=== PATIENT | female | born 1990 | race Hispanic/Latino ===

== ENCOUNTER 2018-03-10 17:09 | Emergency (ER) | payer OTHER ==
[2018-03-10 17:55] LABS: APPEARANCE,URINE Clear (CLEAR); BILIRUBIN,URINE Negative (NEGATIVE); COLOR,URINE Yellow (YELLOW); GLUCOSE, URINE (UA) Negative (NEGATIVE); KETONES,URINE Negative (NEGATIVE); LEUKOCYTE ESTERASE ,URINE Trace (NEGATIVE); NITRATE,URINE Negative (NEGATIVE); OCCULT BLOOD,URINE Moderate (NEGATIVE); PH,URINE 6.5 (5.0-8.0); PROTEIN,URINE Trace (NEGATIVE)
[2018-03-10 18:04] LABS: BACTERIA,URINE None Seen /HPF (None Seen); MUCUS,URINE Moderate LPF (None Seen); RBC,URINE 0-1 /HPF (0-1); SQUAMOUS EPITHELIAL CELL,UR 0-2 /HPF (0-2)
== END 2018-03-10 18:49 | disposition home or self-care (01) ==
LOC: EDH 17:09
DX: N39.0 Urinary tract infection, site not specified (principal)
CPT/HCPCS: 81001; 81025; 87486; 87797

== ENCOUNTER 2021-06-06 09:38 | Observation (INO) | payer MEDICAID ==
[~2021-06-06] VITALS: Ht 152.4 cm; Wt 45.8 kg
[2021-06-06 09:39] VITALS: BP 109/59
[2021-06-06 10:38] LABS: APPEARANCE,URINE Clear (CLEAR); BILIRUBIN,URINE Negative (NEGATIVE); COLOR,URINE Yellow (YELLOW); GLUCOSE, URINE (UA) Negative (NEGATIVE); KETONES,URINE Negative (NEGATIVE); LEUKOCYTE ESTERASE ,URINE Large (NEGATIVE); NITRATE,URINE Negative (NEGATIVE); OCCULT BLOOD,URINE Moderate (NEGATIVE); PH,URINE 7.5 (5.0-8.0); PROTEIN,URINE Negative (NEGATIVE)
[2021-06-06 10:59] LABS: BACTERIA,URINE Moderate /HPF (None Seen); RBC,URINE 0-1 /HPF (0-1); SQUAMOUS EPITHELIAL CELL,UR Moderate /HPF (0-2)
[2021-06-06 11:09] LABS: HEMATOCRIT 32.1 % (36-48); MEAN CORPUSCULAR HEMOGLOBIN 28.8 pg (27.0-33.0); MEAN CORPUSCULAR HGB CONC 31.5 g/dL (32.0-36.0); MEAN CORPUSCULAR VOLUME 91.5 fL (79-99); RED BLOOD CELL COUNT(AUTO) 3.51 MIL/uL (4.00-5.50); RED CELL DISTRIBUTION WIDTH 14.9 % (11.0-15.5); WHITE BLOOD COUNT (AUTO) 15.7 K/uL (4.8-10.8)
== END 2021-06-06 14:30 | disposition home or self-care (01) ==
LOC: EDH 09:38 → LDH 09:39
PROVIDERS: ADMIT Obstetrics & Gynecology; ATTEND Obstetrics & Gynecology
DX: O36.8120 Decreased fetal movements, second trimester, not applicable or unspecified (principal); Z3A.21 21 weeks gestation of pregnancy; Z79.899 Other long term (current) drug therapy
CPT/HCPCS: 36415; 59025; 76805; 81001; 85027; 87088; G0378 ×4

== ENCOUNTER → 2021-08-26 | Outpatient (CLI) | payer MEDICAID | END | disposition home or self-care (01) | LOC: RAH 09:08 | PROVIDERS: ATTEND Obstetrics & Gynecology | DX: N60.02 Solitary cyst of left breast (principal); N63.23 Unspecified lump in the left breast, lower outer quadrant | CPT/HCPCS: 76641 ==

== ENCOUNTER 2022-08-29 22:55 | Emergency (ER) | payer MEDICAID ==
[~2022-08-29] VITALS: Ht 152.4 cm; Wt 40.8 kg
[~2022-08-29 22:55] MED LIST: ACET-66 PO
[2022-08-29] MEDS ORDERED: 0.9%NACL 1000ML 1,000 ML IV ONE ×2 (23:06→23:30)
[2022-08-29] MEDS ORDERED: DIPHENOXYLATE HCL/ATROPINE 2.5/0.025 MG TAB PO ONE ×2 (23:06→23:30)
[2022-08-29] MEDS ORDERED: ONDANSETRON 4MG INJ ONE (23:06)
[2022-08-29 23:16] VITALS: BP 126/67
[2022-08-29 23:21] LABS: BASOPHILS % (AUTO) 0.8 % (0.0-5.0); HEMATOCRIT 32.4 % (36-48); LYMPHOCYTES % (AUTO) 23.3 % (21.0-51.0); MEAN CORPUSCULAR HEMOGLOBIN 23.7 pg (27.0-33.0); MEAN CORPUSCULAR HGB CONC 30.6 g/dL (32.0-36.0); MEAN CORPUSCULAR VOLUME 77.7 fL (79-99); MONOCYTES % (AUTO) 8.9 % (3.0-13.0); NEUTROPHILS % (AUTO) 65.7 % (40.0-77.0); PLATELET COUNT (AUTO) 339 K/uL (130-400); RED BLOOD CELL COUNT(AUTO) 4.17 MIL/uL (4.00-5.50); RED CELL DISTRIBUTION WIDTH 14.3 % (11.0-15.5); WHITE BLOOD COUNT (AUTO) 6.1 K/uL (4.8-10.8)
[2022-08-29 23:26] LABS: APPEARANCE,URINE CLEAR (CLEAR); BILIRUBIN,URINE NEGATIVE (NEGATIVE); COLOR,URINE COLORLESS (YELLOW); GLUCOSE, URINE (UA) NEGATIVE (NEGATIVE); KETONES,URINE NEGATIVE (NEGATIVE); LEUKOCYTE ESTERASE ,URINE NEGATIVE Leu/uL (NEGATIVE); NITRATE,URINE NEGATIVE (NEGATIVE); OCCULT BLOOD,URINE NEGATIVE (NEGATIVE); PROTEIN,URINE NEGATIVE (NEGATIVE); UROBILINOGEN,URINE 0.2 mg/dL (0.2-1.0)
[2022-08-29 23:27] LABS: HCG,QUALITATIVE URINE NEGATIVE (NEGATIVE)
[2022-08-29 23:29] LABS: CREATININE 0.6 mg/dL (0.5-1.5); POTASSIUM 4.1 mmol/L (3.5-5.1)
[2022-08-29] MEDS ORDERED: ONDANSETRON 4MG INJ IVP ONE (23:30)
[2022-08-29 23:34] LABS: ALBUMIN 4.4 g/dL (3.5-5.0); TOTAL PROTEIN, SERUM 7.8 g/dL (6.0-8.3)
== END 2022-08-30 00:11 | disposition home or self-care (01) ==
LOC: EDH 22:55
DX: F41.9 Anxiety disorder, unspecified (principal)
CPT/HCPCS: 99283; 80053; 83690; 85025; 81003; 81025; 36415; J7030; J2405

== ENCOUNTER 2024-02-02 14:44 | Observation (INO) | payer MEDICAID ==
[~2024-02-02] VITALS: Ht 154.9 cm; Wt 53.5 kg
[2024-02-02 14:51] VITALS: BP 106/47; PULSE 70; RESP 16; O2SAT 98
[2024-02-02 15:32] LABS: APPEARANCE,URINE CLEAR (CLEAR); BILIRUBIN,URINE NEGATIVE (NEGATIVE); COLOR,URINE LIGHT-YELLOW (YELLOW); GLUCOSE, URINE (UA) NEGATIVE (NEGATIVE); KETONES,URINE 100 mg/dL (NEGATIVE); LEUKOCYTE ESTERASE ,URINE 75 Leu/uL (NEGATIVE); NITRATE,URINE NEGATIVE (NEGATIVE); OCCULT BLOOD,URINE NEGATIVE (NEGATIVE); PROTEIN,URINE NEGATIVE (NEGATIVE); UROBILINOGEN,URINE 0.2 mg/dL (0.2-1.0)
[2024-02-02 15:41] LABS: ADD UA MICROSCOPIC YES
[2024-02-02 15:43] LABS: BACTERIA,URINE RARE /HPF (None Seen); MUCUS,URINE RARE LPF (None Seen); SQUAMOUS EPITHELIAL CELL,UR FEW /HPF (0-2)
[2024-02-02] MEDS: LACTATED RINGERS 1000ML 1,000 ML IV SCH (17:09)
[2024-02-02] MEDS: TERBUTALINE SULFATE VIAL 1MG/ML SQ SCH (17:20)
[2024-02-02 20:32] LABS: HEMATOCRIT 32.9 % (36-48); MEAN CORPUSCULAR HEMOGLOBIN 26.5 pg (27.0-33.0); MEAN CORPUSCULAR HGB CONC 30.7 g/dL (32.0-36.0); MEAN CORPUSCULAR VOLUME 86.4 fL (79-99); PLATELET COUNT (AUTO) 322 K/uL (130-400); RED BLOOD CELL COUNT(AUTO) 3.81 MIL/uL (4.00-5.50); RED CELL DISTRIBUTION WIDTH 20.6 % (11.0-15.5); WHITE BLOOD COUNT (AUTO) 7.7 K/uL (4.8-10.8)
[2024-02-02 21:13] LABS: HIV 1&2 ANTIBODY Non-Reactive (Negative); HIV-1 p24 Antigen Non-Reactive (Negative)
[2024-02-03 13:24] LABS: RAPID PLASMA REAGIN NONREACTIVE (NONREACTIVE)
== END 2024-02-03 08:30 | disposition home or self-care (01) ==
LOC: EDH 14:44 → LDH 15:04
PROVIDERS: ADMIT Obstetrics & Gynecology; ATTEND Obstetrics & Gynecology
DX: O62.9 Abnormality of forces of labor, unspecified (principal); Z3A.36 36 weeks gestation of pregnancy
CPT/HCPCS: 96361 ×4; 36415 ×2; 96372 ×2; 96360; 85027; 86592; 86850; 86900; 86901; 87088; 82948; 87340; 86701; 87390; 81001; G0378 ×14; J7120 ×2; J3105 ×2; 96374